=== PATIENT | male | born 1950 | race Caucasian/White ===

== ENCOUNTER 2022-08-21 16:31 | Outpatient (CLI) | payer MEDICARE, OTHER ==
--- NOTE | 2022-08-21 17:59 | XRAY Report ---
PROCEDURE: Finger(s) RT INDICATIONS: RIGHT INDEX FINGER PAIN TECHNIQUE: AP hand, 2 views of the second finger(s) acquired. COMPARISON: None FINDINGS: Bones: No fractures or dislocations. No suspicious bony lesions. Proximal and distal interphalange al joint space narrowing with marginal osteophyte. No evidence of fracture. Soft tissues: No suspicious soft tissue calcifications. IMPRESSION: Osteoporosis without fracture or foreign body Reviewed by: Kofi Engle MD on 08/21/2022 4:58 PM [place] Approved by: Kofi Engle MD on 08/21/2022 4:58 PM AKST Station ID: [id number]
== END 2022-08-21 16:32 | disposition home or self-care (01) ==
LOC: DI.WOS 16:31
PROVIDERS: ATTEND Orthopaedic Surgery
DX: M79.644 Pain in right finger(s) (principal); M81.0 Age-related osteoporosis without current pathological fracture

== ENCOUNTER 2022-11-06 13:47 | Outpatient (CLI) | payer MEDICARE, OTHER ==
[2022-11-06 20:25] LABS: BASOPHILS # (AUTO) 0.1 10^3/uL (0.0-0.1); BASOPHILS % (AUTO) 0.8 %; EOSINOPHILS # (AUTO) 0.2 10^3/uL (0.0-0.7); EOSINOPHILS % (AUTO) 1.4 %; HCT - HEMATOCRIT 41.7 % (42.0-52.0); HGB - HEMOGLOBIN 13.8 g/dL (14.0-18.0); LYMPHOCYTES % (AUTO) 69.2 %; MEAN CORPUSCULAR HEMOGLOBIN 30.7 pg (27.0-31.0); MEAN CORPUSCULAR HGB CONC 33.1 g/dL (32.0-36.0); MEAN CORPUSCULAR VOLUME 92.9 fL (80.0-94.0); MEAN PLATELET VOLUME 10.8 fL (7.4-11.4); MONOCYTES # (AUTO) 0.5 10^3/uL (0.0-1.0); NEUTROPHILS # (AUTO) 4.1 10^3/uL (1.5-6.6); NEUTROPHILS % (AUTO) 25.4 %; PLT - PLATELET COUNT 145 10^3/uL (130-450); RED BLOOD COUNT 4.49 10^6/uL (4.70-6.10); RED CELL DISTRIBUTION WIDTH 15.7 % (12.0-15.0); WHITE BLOOD COUNT 15.9 x10^3/uL (4.8-10.8)
[2022-11-06 20:32] LABS: SLIDE REVIEW? Indicated
[2022-11-06 20:35] LABS: ALBUMIN 4.2 g/dL (3.2-5.5); ALBUMIN/GLOBULIN RATIO 1.6 (1.0-2.2); BILIRUBIN,TOTAL 0.9 mg/dL (0.2-1.0); CALCIUM 9.6 mg/dL (8.5-10.3); CREATININE 0.9 mg/dL (0.6-1.2); POTASSIUM 4.6 mmol/L (3.5-5.0); TOTAL PROTEIN 6.9 g/dL (6.7-8.2)
[2022-11-06 20:51] LABS: THYROID STIMULATING HORMONE 1.7 uIU/mL (0.34-5.60)
[2022-11-06 21:04] LABS: PLATELET ESTIMATE, MANUAL NORMAL (130-450,000) (NORMAL); PLATELET MORPHOLOGY NORMAL APPEARANCE (NORMAL); RBC MORPHOLOGY (MULTIPLE) NORMAL APPEARANCE (NORMAL); WBC MORPHOLOGY (MULTIPLE) 1+ SMUDGE CELLS (NORMAL)
[2022-11-06 21:05] LABS: DIFFERENTIAL COMMENT MANUAL=AUTO DIFF
== END 2022-11-06 13:48 | disposition home or self-care (01) ==
LOC: LAB.S 13:47
PROVIDERS: ATTEND Physician Assistant
DX: E03.9 Hypothyroidism, unspecified (principal); Z79.899 Other long term (current) drug therapy
CPT/HCPCS: 36415; 80053; 84443; 85025

== ENCOUNTER 2023-09-02 11:49 | Outpatient (CLI) | payer MEDICARE, OTHER ==
[2023-09-02 14:31] LABS: BASOPHILS % (AUTO) 0.6 %; EOSINOPHILS % (AUTO) 0.6 %; HCT - HEMATOCRIT 45.8 % (42.0-52.0); HGB - HEMOGLOBIN 14.8 g/dL (14.0-18.0); LYMPHOCYTES % (AUTO) 70.5 %; MEAN CORPUSCULAR HEMOGLOBIN 30.5 pg (27.0-31.0); MEAN CORPUSCULAR HGB CONC 32.3 g/dL (32.0-36.0); MEAN CORPUSCULAR VOLUME 94.4 fL (80.0-94.0); MEAN PLATELET VOLUME 10.8 fL (7.4-11.4); MONOCYTES % (AUTO) 4.5 %; NEUTROPHILS % (AUTO) 23.6 %; PLT - PLATELET COUNT 149 10^3/uL (130-450); RED BLOOD COUNT 4.85 10^6/uL (4.70-6.10); WHITE BLOOD COUNT 25.4 x10^3/uL (4.8-10.8)
[2023-09-02 14:48] LABS: SLIDE REVIEW? Indicated
[2023-09-02 14:55] LABS: ALBUMIN 4.7 g/dL (3.2-5.5); ALBUMIN/GLOBULIN RATIO 1.8 (1.0-2.2); BILIRUBIN,TOTAL 0.9 mg/dL (0.2-1.0); CALCIUM 10.1 mg/dL (8.5-10.3); TOTAL PROTEIN 7.3 g/dL (6.4-8.9)
[2023-09-02 15:09] LABS: ABNORMAL LYMPHS % (MANUAL) 0 %
[2023-09-02 15:57] LABS: BAND NEUTROPHILS % (MANUAL) 2 %; EOSINOPHILS # (MANUAL) 0.3 10^3/uL (0-0.7); LYMPHOCYTES # (MANUAL) 17.3 10^3/uL (1.5-3.5); LYMPHOCYTES % (MANUAL) 68 %; NEUTROPHILS # (MANUAL) 6.9 10^3/uL (1.5-6.6); PLATELET ESTIMATE, MANUAL NORMAL (130-450,000) (NORMAL); PLATELET MORPHOLOGY NORMAL APPEARANCE (NORMAL); RBC MORPHOLOGY (MULTIPLE) NORMAL APPEARANCE (NORMAL)
[2023-09-02 16:53] LABS: DIFFERENTIAL COMMENT MANUAL DIFFERENTIAL
== END 2023-09-02 11:50 | disposition home or self-care (01) ==
LOC: LAB.S 11:49
PROVIDERS: ATTEND Physician Assistant Medical
DX: R10.9 Unspecified abdominal pain (principal); R31.29 Other microscopic hematuria
CPT/HCPCS: 36415; 80053; 82150; 83690; 85025; 87077; 87086

== ENCOUNTER 2023-09-03 13:46 | Emergency (ER) | payer MEDICARE, OTHER ==
[2023-09-03 14:31] LABS: BASOPHILS % (AUTO) 0.4 %; EOSINOPHILS % (AUTO) 0.7 %; HCT - HEMATOCRIT 44.1 % (42.0-52.0); HGB - HEMOGLOBIN 14.5 g/dL (14.0-18.0); LYMPHOCYTES % (AUTO) 72.5 %; MEAN CORPUSCULAR HEMOGLOBIN 31.5 pg (27.0-31.0); MEAN CORPUSCULAR HGB CONC 32.9 g/dL (32.0-36.0); MEAN CORPUSCULAR VOLUME 95.7 fL (80.0-94.0); MEAN PLATELET VOLUME 10.2 fL (7.4-11.4); MONOCYTES % (AUTO) 2.8 %; NEUTROPHILS % (AUTO) 23.4 %; PLT - PLATELET COUNT 141 10^3/uL (130-450); RED BLOOD COUNT 4.61 10^6/uL (4.70-6.10); RED CELL DISTRIBUTION WIDTH 15.1 % (12.0-15.0); WHITE BLOOD COUNT 26.7 x10^3/uL (4.8-10.8)
[2023-09-03 14:38] LABS: ABNORMAL LYMPHS % (MANUAL) 0 %; BAND NEUTROPHILS % (MANUAL) 0 %
[2023-09-03 14:48] LABS: ALBUMIN 4.6 g/dL (3.2-5.5); ALBUMIN/GLOBULIN RATIO 1.8 (1.0-2.2); BILIRUBIN,TOTAL 0.8 mg/dL (0.2-1.0); CALCIUM 9.8 mg/dL (8.5-10.3); CREATININE 1.1 mg/dL (0.6-1.3); POTASSIUM 3.8 mmol/L (3.5-4.5); TOTAL PROTEIN 7.1 g/dL (6.4-8.9)
[2023-09-03 15:16] LABS: EOSINOPHILS # (MANUAL) 0.5 10^3/uL (0-0.7); LYMPHOCYTES # (MANUAL) 17.6 10^3/uL (1.5-3.5); LYMPHOCYTES % (MANUAL) 66 %; MONOCYTES # (MANUAL) 0.8 10^3/uL (0.0-1.0); NEUTROPHILS # (MANUAL) 7.7 10^3/uL (1.5-6.6)
[2023-09-03 15:18] LABS: DIFFERENTIAL COMMENT MANUAL DIFFERENTIAL; PLATELET ESTIMATE, MANUAL NORMAL (130-450,000) (NORMAL); PLATELET MORPHOLOGY NORMAL APPEARANCE (NORMAL); RBC MORPHOLOGY (MULTIPLE) NORMAL APPEARANCE (NORMAL)
--- NOTE | 2023-09-03 15:37 | ED Physician Documentation ---
PD HPI ABD PAIN - Stated complaint Stated Complaint: ABD PX,COUGH - Chief complaint Chief Complaint: Abd Pain - History obtained from History obtained from: Patient - Additional information Additional information: 73-year-old gentleman with history of leukemia in remission, known ascending aortic aneurysm with no surveillance for the last 2 years and known diverticulosis presents with periumbilical and left lower quadrant pain for the last week. Not associated with fevers or changes in bowel movements but was quite nauseous yesterday. Went to the clinic yesterday and noted to have a white count of 25,000. No chest pain. PD PAST MEDICAL HISTORY - Past Medical History Past Medical History: Yes GI: Hiatal hernia, Diverticulitis Musculoskeletal: Chronic back pain Other Past Medical History: lymphoma, leukemia, aneurysm. - Past Surgical History Past Surgical History: Yes Ortho: Spine surgery - Present Medications Home Medications: Ambulatory Orders Medication Instructions Recorded Confirmed Atorvastatin Calcium 0 mg PO DAILY PM 09/03/23 09/03/23 Levothyroxine [Synthroid] 112 mcg PO QDAC 09/03/23 09/03/23 Tamsulosin [Flomax] 0.8 mg PO DAILY 09/03/23 09/03/23 - Allergies Allergies/Adverse Reactions: Allergies Allergy/AdvReac Type Severity Reaction Status Date / Time No Known Drug Allergies Allergy Verified 09/03/23 14:09 - Social History Does the pt smoke?: No Smoking Status: Never smoker Does the pt drink ETOH?: No Does the pt have substance abuse?: No PD ED PE NORMAL - Vitals Vital signs reviewed: Yes - General General: Alert and oriented X 3, No acute distress - Cardiac Cardiac: RRR, No murmur - Respiratory Respiratory: No respiratory distress, Clear bilaterally - Abdomen Abdomen: Other (Moderate left lower quadrant tenderness without surgical signs) - Neuro Neuro: Alert and oriented X 3, Normal speech Results - Vitals Vitals: Vital Signs - 24 hr 09/03/23 09/03/23 09/03/23 14:03 16:02 17:22 Temperature 36.2 C L Heart Rate 74 78 51 L Respiratory 14 16 18 Rate Blood Pressure 115/75 133/80 H 139/87 H O2 Saturation 97 98 95 Oxygen O2 Source Room air - Labs Labs: Laboratory Tests 09/03/23 09/03/23 14:20 14:20 WBC 26.7 H RBC 4.61 L Hgb 14.5 Hct 44.1 MCV 95.7 H MCH 31.5 H MCHC 32.9 RDW 15.1 H Plt Count 141 MPV 10.2 Neut # (Auto) Not Reportable Lymph # (Auto) Not Reportable Placer # (Auto) Not Reportable Eos # (Auto) Not Reportable Baso # (Auto) Not Reportable Absolute Nucleated RBC Not Reportable Total Counted 100 Band Neuts % (Manual) 0 Abnorm Lymph % (Manual) 0 Nucleated RBC % Not Reportable Neutrophils # (Manual) 7.7 H Lymphocytes # (Manual) 17.6 H Monocytes # (Manual) 0.8 Eosinophils # (Manual) 0.5 Basophils # (Manual) 0.0 Differential Comment MANUAL DIFFERENTIAL Platelet Estimate NORMAL (130-450,000) Platelet Morphology NORMAL APPEARANCE RBC Morph Micro Appear NORMAL APPEARANCE Sodium 136 Potassium 3.8 Chloride 101 Carbon Dioxide 30 Anion Gap 5.0 L BUN 14 Creatinine 1.1 Estimated GFR (MDRD) 66 L Glucose 94 Calcium 9.8 Total Bilirubin 0.8 AST 14 ALT 11 Alkaline Phosphatase 89 Total Protein 7.1 Albumin 4.6 Globulin 2.5 Albumin/Globulin Ratio 1.8 Lipase 15 - Rads (name of study) CT chest/abd Relevant Findings:: Final report received, EMP independent interpretation of mathew CARDOSO Medical Decision Making - ED course ED course: 73-year-old gentleman with remote history of leukemia and lymphoma in remission presents with lower abdominal pain and cough. Has a history of diverticulosis. Has a known leukocytosis persistent today and in fact a little higher at 26,000. Otherwise normal CBC. The white count had a significant lymphocytic shift so this may be more of a leukemic phenomenon, but we will perform CT scanning. He requests evaluation of his ascending aorta as well even though he is asymptomatic from that perspective given that he has not had evaluation of that in the last 2 years. Work-up in the emergency department shows that his Ascending aortic aneurysm is stable. He states it was previously 4.5 cm but he does have adenopathy throughout the chest. No findings of diverticulosis and a large prostate. The lymphocytic shift and adenopathy is concerning for recurrence of his blood-borne malignancy and this was discussed frankly with patient and and he will need to follow-up with his provider relations specialist. I do not find anything that needs immediate treatment tonight. The radiologist wondered if he might have cholecystitis but he is completely nontender in the right upper quadrant Departure - Departure Disposition: 01 Home, Self Care Clinical Impression: Abdominal pain Qualifiers: Abdominal location: generalized Qualified Code(s): R10.84 - Generalized abdominal pain Condition: Good Record reviewed to determine appropriate education?: Yes Instructions: ED Abdominal Pain Unkn Cause Male Comments: As discussed, your ascending aortic aneurysm is stable, but concerning findings tonight are especially the lymphocytic shift on your elevated white count and the findings of adenopathy in your chest. This is concerning for recurrence of your prior malignancy. Other findings included a large prostate. I will email nurse practitioner Jarrett but you will need to follow-up with your oncologist for reevaluation given the above findings. Forms: PCP List
--- NOTE | 2023-09-03 17:11 | CT Report ---
PROCEDURE: ANGIO CHEST W/WO INDICATIONS: aorta protocol, eval known ascending aneurysm CONTRAST: 100mL Omni 300 TECHNIQUE: After the administration of intravenous contrast, 2 mm axial images were acquired from the pulmonary apices to the posterior costophrenic angles during the arterial phase. In addition, 1 mm lung kernel and 5 mm soft tissue kernel reconstructions were performed. 3-dimensional coronal oblique maximum int ensity projection (MIP) reformats, 8 mm axial MIP, and 5 mm coronal and sagittal MPR reformats were t hen performed through the thorax. For radiation dose reduction, the following was used: automated exp osure control, adjustment of mA and/or kV according to patient size. COMPARISON: CT abdomen and pelvis from the same date FINDINGS: Image quality: Excellent. Large vessels: 4.5 cm ascending aortic aneurysm. Classic three-vessel arch anatomy. Great vessel orig ins are widely patent. Transverse arch and descending thoracic aorta are normal in caliber. No dissec tion. Pulmonary arteries are normal in size. No pulmonary emboli. Lungs and pleura: No consolidation. No pleural effusions. No pneumothorax. No suspicious pulmonary n odules which require follow up. Mild bibasilar bronchiectasis. Mediastinum: Heart size is normal. Severe coronary artery calcifications. No pericardial effusion. No large vessel abnormality. No mediastinal adenopathy by size criteria. There is shotty mediastinal a denopathy with numerous small mediastinal and hilar lymph nodes, most likely reactive. Chest wall and lower neck: Thyroid is unremarkable. No axillary or supraclavicular adenopathy by size . However, there is shotty prominent bilateral axillary adenopathy. Bones: No aggressive osseous abnormality. Upper Abdomen: Please refer to the separate report from the same date. IMPRESSION: 1. 4.5 cm ascending aortic aneurysm. 2. Extensive shotty bilateral axillary and mediastinal and hilar lymph nodes, most likely reactive in nature. 3. No acute pulmonary process. 4. Severe coronary artery calcifications. Comment: Attention can be given to the mediastinal and axillary adenopathy on future studies. Consid er repeat CT chest in 6 months. Reviewed by: Lele Gates MD on 09/03/2023 5:09 PM PST Approved by: Lele Gates MD on 09/03/2023 5:09 PM PST Station ID: [id number]
--- NOTE | 2023-09-03 17:17 | CT Report ---
PROCEDURE: ABDOMEN/PELVIS W INDICATIONS: ABD PAIN, IV ONLY CONTRAST: 100mL Omni 300 TECHNIQUE: After the administration of intravenous contrast, 5 mm thick sections acquired from the diaphragms to the symphysis. 5 mm thick coronal and sagittal reformats were acquired. For radiation dose reducti on, the following was used: automated exposure control, adjustment of mA and/or kV according to sumit ent size. COMPARISON: CTA chest from today FINDINGS: Image quality: Excellent. Lung bases and heart: Coronary artery calcifications. Lung bases are clear. Liver: No solid mass. Gallbladder and biliary tree: Gallbladder is distended, and there is gallbladder wall thickening and possible gallbladder wall edema. No calcified gallstones. Findings may potentially represent acute ch olecystitis. Spleen: No splenomegaly. Pancreas: No pancreatic ductal dilation. Adrenals: No adrenal nodule. Kidneys and ureters: No hydronephrosis. No renal cystic lesion which requires follow up. No solid mas s. Bowel and peritoneum: No bowel distension. No pathologic free fluid. Incidental note is made of inter position of the transverse colon anterior to the left lobe of the liver. Extensive sigmoid diverticul osis without evidence of diverticulitis. Lymph nodes: No central or retroperitoneal adenopathy. Vessels: No infrarenal aortic aneurysm. PELVIS Reproductive organs: Prostate is enlarged. There is impression on the base of the bladder by the pros ling.. Bladder: No abnormal wall thickening, accounting for underdistension. There is a probable diverticulu m off the fundus of the bladder. Pelvic lymph nodes: No pelvic adenopathy by size criteria. Bones: No aggressive osseous abnormality. Remote compression fracture of L2. Posterior lateral pete an d pedicle screw fixation bilaterally extending from L1 through L5. Posterior decompressive laminectom y centered at L4. No acute compression fractures. There is a sclerotic area in the medial right sacru m which is felt to likely represent a benign bony lesion. Other: No significant ventral or inguinal hernia. IMPRESSION: 1. Gallbladder is distended with gallbladder wall thickening and possible wall edema. Findings may po tentially represent acute cholecystitis. 2. Prostatomegaly, with impression on the base of the bladder by prostate. 3. The presence of a fundal bladder diverticulum suggests that there is likely a component of bladder outlet obstruction secondary to prostate enlargement. 4. Extensive sigmoid diverticulosis without evidence of diverticulitis. Comment: If suspect acute cholecystitis, recommend right upper quadrant ultrasound. Reviewed by: Lele Gates MD on 09/03/2023 5:15 PM PST Approved by: Lele Gates MD on 09/03/2023 5:15 PM PST Station ID: [id number]
[2023-09-03 17:32] VITALS: BP 139/87; O2SAT 95
[2023-09-03] MEDS ORDERED: iohexoL-300 100 ML VIAL IVP ONE (18:11)
== END 2023-09-03 17:50 | disposition home or self-care (01) ==
LOC: ED 13:46
DX: R10.84 Generalized abdominal pain (principal); I71.21 Aneurysm of the ascending aorta, without rupture; C95.91 Leukemia, unspecified, in remission; R59.0 Localized enlarged lymph nodes; N40.0 Benign prostatic hyperplasia without lower urinary tract symptoms
CPT/HCPCS: 36415; 71275; 74177; 80053; 83690; 85025; 99284; Q9967

== ENCOUNTER 2023-09-04 14:02 | Emergency (ER) | payer MEDICARE, OTHER ==
[2023-09-04 14:50] VITALS: BP 102/73; O2SAT 96
[2023-09-04 15:17] LABS: BASOPHILS % (AUTO) 0.4 %; EOSINOPHILS % (AUTO) 0.7 %; HCT - HEMATOCRIT 43.9 % (42.0-52.0); HGB - HEMOGLOBIN 14.2 g/dL (14.0-18.0); MEAN CORPUSCULAR HEMOGLOBIN 30.5 pg (27.0-31.0); MEAN CORPUSCULAR HGB CONC 32.3 g/dL (32.0-36.0); MEAN CORPUSCULAR VOLUME 94.2 fL (80.0-94.0); MEAN PLATELET VOLUME 10.3 fL (7.4-11.4); MONOCYTES % (AUTO) 2.1 %; NEUTROPHILS % (AUTO) 24.6 %; PLT - PLATELET COUNT 132 10^3/uL (130-450); RED BLOOD COUNT 4.66 10^6/uL (4.70-6.10); RED CELL DISTRIBUTION WIDTH 15.1 % (12.0-15.0); WHITE BLOOD COUNT 24.4 x10^3/uL (4.8-10.8)
[2023-09-04 15:18] LABS: ABNORMAL LYMPHS % (MANUAL) 0 %
--- NOTE | 2023-09-04 15:21 | Ultrasound Report ---
PROCEDURE: Abdomen Limited INDICATIONS: abd pain, abn ct TECHNIQUE: Real-time focused scanning was performed of the abdomen, with image documentation. COMPARISONS: CT 09/03/2023 FINDINGS: Liver measures 12 cm. Overall evaluation is limited due to bowel gas. No focal lesions. Gallbladder is not well seen due to bowel gas. CBD, pancreas are also not well seen. Right kidney measures 12 cm. IMPRESSION: No acute sonographic abnormality in the liver, however multiple right upper quadrant structures are n ot well seen due to bowel gas, including the gallbladder. Reviewed by: Warren Layton MD on 09/04/2023 3:20 PM PST Approved by: Warren Layton MD on 09/04/2023 3:20 PM PST Station ID: [id number]
[2023-09-04 15:30] LABS: ALBUMIN 4.4 g/dL (3.2-5.5); ALBUMIN/GLOBULIN RATIO 1.8 (1.0-2.2); BILIRUBIN,TOTAL 0.7 mg/dL (0.2-1.0); CALCIUM 9.9 mg/dL (8.5-10.3); POTASSIUM 4.2 mmol/L (3.5-4.5); TOTAL PROTEIN 6.8 g/dL (6.4-8.9)
[2023-09-04 15:46] LABS: BAND NEUTROPHILS % (MANUAL) 1 %; LYMPHOCYTES # (MANUAL) 17.8 10^3/uL (1.5-3.5); LYMPHOCYTES % (MANUAL) 73 %; MONOCYTES # (MANUAL) 0.7 10^3/uL (0.0-1.0); NEUTROPHILS # (MANUAL) 5.9 10^3/uL (1.5-6.6)
[2023-09-04 15:47] LABS: DIFFERENTIAL COMMENT MANUAL DIFFERENTIAL; PLATELET ESTIMATE, MANUAL DECREASED (<130,000) (NORMAL); PLATELET MORPHOLOGY NORMAL APPEARANCE (NORMAL); RBC MORPHOLOGY (MULTIPLE) NORMAL APPEARANCE (NORMAL)
[2023-09-04] MEDS ORDERED: oxyCODONE 5 MG TABLET PO STA (16:40)
--- NOTE | 2023-09-04 16:41 | ED Physician Documentation ---
PD HPI ABD PAIN - Stated complaint Stated Complaint: ABD PX - Chief complaint Chief Complaint: Abd Pain - History obtained from History obtained from: Patient - Additional information Additional information: 73-year-old gentleman with history of myelogenous malignancy in remission was seen by me last night for abdominal pain. He had had a white count the day prior at the urgent care of 25,000, and yesterday was 26,000. The focus of the pain was epigastrium to the left lower quadrant. His liver enzymes were normal and he had CT scanning done which was notable for stable ascending aortic aneury sm, shotty adenopathy in the chest, dilated gallbladder, prostatic megaly and diverticulosis without diverticulitis. At that time I did not feel that the pain was related to his gallbladder as he had no right upper quadrant pain. As instructed, he called [facility] today to arrange for oncology follow-up given the elevated white count with lymphocytic predominance. They reviewed the imaging but did not see the patient and advised reevaluation given the gallbladder findings although I did not feel that clinically his gallbladder was the source of pain yesterday. PD PAST MEDICAL HISTORY - Past Medical History Past Medical History: Yes GI: Hiatal hernia, Diverticulitis Musculoskeletal: Chronic back pain Other Past Medical History: leukemia and lymphoma - Past Surgical History Past Surgical History: Yes Ortho: Spine surgery - Present Medications Home Medications: Ambulatory Orders Medication Instructions Recorded Confirmed Atorvastatin Calcium 0 mg PO DAILY PM 09/03/23 09/03/23 Levothyroxine [Synthroid] 112 mcg PO QDAC 09/03/23 09/03/23 Tamsulosin [Flomax] 0.8 mg PO DAILY 09/03/23 09/03/23 oxyCODONE [Roxicodone] 5 mg PO Q4-6H PRN #20 tablet 09/04/23 - Allergies Allergies/Adverse Reactions: Allergies Allergy/AdvReac Type Severity Reaction Status Date / Time No Known Drug Allergies Allergy Verified 09/03/23 14:09 - Social History Does the pt smoke?: No Smoking Status: Never smoker Does the pt drink ETOH?: No Does the pt have substance abuse?: No PD ED PE NORMAL - Vitals Vital signs reviewed: Yes - General General: Alert and oriented X 3, No acute distress - Cardiac Cardiac: RRR, No murmur - Respiratory Respiratory: No respiratory distress, Clear bilaterally - Abdomen Abdomen: Normal bowel sounds, Soft, Other (He is completely nontender in the right upper quadrant. He is twister tender in the right lower quadrant without surgical signs.) - Back Back: No CVA TTP, No spinal TTP - Neuro Neuro: Alert and oriented X 3, Normal speech Results - Vitals Vitals: Vital Signs - 24 hr 09/04/23 09/04/23 14:28 16:17 Temperature 36.8 C Heart Rate 80 Respiratory 20 4 L Rate Blood Pressure 102/73 O2 Saturation 96 Oxygen O2 Source Room air - Labs Labs: Laboratory Tests 09/04/23 09/04/23 15:06 15:06 WBC 24.4 H RBC 4.66 L Hgb 14.2 Hct 43.9 MCV 94.2 H MCH 30.5 MCHC 32.3 RDW 15.1 H Plt Count 132 MPV 10.3 Neut # (Auto) Not Reportable Lymph # (Auto) Not Reportable Lamb # (Auto) Not Reportable Eos # (Auto) Not Reportable Baso # (Auto) Not Reportable Absolute Nucleated RBC Not Reportable Total Counted 100 Band Neuts % (Manual) 1 Abnorm Lymph % (Manual) 0 Nucleated RBC % Not Reportable Neutrophils # (Manual) 5.9 Lymphocytes # (Manual) 17.8 H Monocytes # (Manual) 0.7 Eosinophils # (Manual) 0.0 Basophils # (Manual) 0.0 Differential Comment MANUAL DIFFERENTIAL Platelet Estimate DECREASED (<130,000) Platelet Morphology NORMAL APPEARANCE RBC Morph Micro Appear NORMAL APPEARANCE Sodium 136 Potassium 4.2 Chloride 104 Carbon Dioxide 24 Anion Gap 8.0 BUN 15 Creatinine 1.0 Estimated GFR (MDRD) 73 L Glucose 92 Calcium 9.9 Total Bilirubin 0.7 AST 14 ALT 9 L Alkaline Phosphatase 83 Total Protein 6.8 Albumin 4.4 Globulin 2.4 Albumin/Globulin Ratio 1.8 Lipase 32 PD Medical Decision Making - ED course ED course: Work-up today demonstrates mildly improved white count to 24,000, normal CMP without elevation in liver enzymes or evidence of biliary obstruction. A right upper quadrant ultrasound was done which was basically nondiagnostic due to bowel gas. On examination today he remains completely nontender in the right upper quadrant and therefore I do not believe that his gallbladder is the source of his current symptoms. I offered surgical consultation to him which he declined agreeing with my evaluation. Departure - Departure Disposition: 01 Home, Self Care Clinical Impression: Abdominal pain Qualifiers: Abdominal location: left lower quadrant Qualified Code(s): R10.32 - Left lower quadrant pain Condition: Good Instructions: ED Abdominal Pain Unkn Cause Male Prescriptions: oxyCODONE [Roxicodone] 5 mg PO Q4-6H PRN #20 tablet PRN Reason: Pain Comments: I sent a prescription for oxycodone to the [facility] in [place]. Follow-up with oncology on Saturday as discussed. Again, I do not think your current pain is related to your gallbladder as the tenderness and pain is not typical for that, that said if the pain moves to the upper right part of your abdomen or worsens or you develop other new or worsening symptoms please return for reevaluation. Follow-up with oncology on Saturday as scheduled. I am prescribing a short course of narcotic pain medication for you. These are potentially dangerous and addictive medications that should be used carefully. These medications may constipate you. Take an [id number] stool softener (docusate) twice daily with plenty of water while taking these medications. If you go 24 hours without a bowel movement, take [id number] miralax, per package instructions. Do not drink or drive while taking these medications. If you received narcotic or sedating medications while in the emergency department, do not drive for 24 hours. Store this medication in a safe, secure place and out of reach of children. It is a violation of federal law to give or sell this medication to another per son or to use in a manner other than prescribed. The ED will not refill narcotic prescriptions, including prescriptions lost or stolen. To dispose of unwanted medications: 1. [facility] provides a drop box for medication in pill form only (no liquids) 8:00 am to 4:30 p.m. Saturday-Saturday in the lobby of the [facility], [address] [place] [address]. Empty pills into ziplock bag before disposal. Call [phone] for information. 2.[employer] is a free service available to all [facility] residents. Go to [email or web address] Note that many narcotic pain relievers also contain Tylenol/acetaminophen. Please ensure that your total dose of acetaminophen from all sources does not exceed 3 g (3000 mg) per day.
== END 2023-09-04 16:56 | disposition home or self-care (01) ==
LOC: ED 14:02
DX: R10.32 Left lower quadrant pain (principal)
CPT/HCPCS: 36415; 76705; 80053; 83690; 85025; 99283; 99284; A9270

== ENCOUNTER 2023-10-16 10:11 | Outpatient (CLI) | payer MEDICARE, OTHER ==
[2023-10-16 14:53] LABS: BASOPHILS % (AUTO) 0.2 %; EOSINOPHILS % (AUTO) 0.5 %; HCT - HEMATOCRIT 41.1 % (42.0-52.0); HGB - HEMOGLOBIN 12.9 g/dL (14.0-18.0); LYMPHOCYTES % (AUTO) 91.2 %; MEAN CORPUSCULAR HEMOGLOBIN 30.3 pg (27.0-31.0); MEAN CORPUSCULAR HGB CONC 31.4 g/dL (32.0-36.0); MEAN CORPUSCULAR VOLUME 96.5 fL (80.0-94.0); MONOCYTES % (AUTO) 0.8 %; NEUTROPHILS % (AUTO) 7.2 %; PLT - PLATELET COUNT 127 10^3/uL (130-450); RED BLOOD COUNT 4.26 10^6/uL (4.70-6.10); RED CELL DISTRIBUTION WIDTH 16.1 % (12.0-15.0)
[2023-10-16 15:14] LABS: WHITE BLOOD COUNT 54.9 x10^3/uL (4.8-10.8)
[2023-10-16 15:15] LABS: ABNORMAL LYMPHS % (MANUAL) 0 %
[2023-10-16 15:44] LABS: ALBUMIN 4.3 g/dL (3.2-5.5); ALBUMIN/GLOBULIN RATIO 1.6 (1.0-2.2); ALKALINE PHOSPHATASE 82 IU/L (42-121); ALT ALANINE AMINOTRANSFERASE 11 IU/L (10-60); AST ASPARTATE AMINOTRANSFERASE 13 IU/L (10-42); BILIRUBIN,TOTAL 0.7 mg/dL (0.2-1.0); BUN - BLOOD UREA NITROGEN 22 mg/dL (6-20); CALCIUM 9.6 mg/dL (8.5-10.3); CARBON DIOXIDE - CO2 29 mmol/L (21-32); CHLORIDE 103 mmol/L (101-111); CHOL/HDL RATIO 3.5 (<5.0); CHOLESTEROL 142 mg/dL; CREATININE 0.9 mg/dL (0.6-1.3); GFR - MDRD 83 (>89); GLUCOSE 86 mg/dL (74-104); HDL CHOLESTEROL 41 mg/dL; LDL CHOLESTEROL,CALCULATED 86 mg/dL; LDL/HDL RATIO 2.1 (<3.6); POTASSIUM 4.1 mmol/L (3.5-4.5); SODIUM 137 mmol/L (135-145); TRIGLYCERIDES 75 mg/dL (48-352); VLDL CHOLESTEROL 15 mg/dL
[2023-10-16 16:23] LABS: BAND NEUTROPHILS % (MANUAL) 1 %; LYMPHOCYTES % (MANUAL) 91 %; MONOCYTES # (MANUAL) 1.1 10^3/uL (0.0-1.0); NEUTROPHILS # (MANUAL) 3.8 10^3/uL (1.5-6.6)
[2023-10-16 16:24] LABS: DIFFERENTIAL COMMENT MANUAL DIFFERENTIAL; PLATELET ESTIMATE, MANUAL DECREASED (<130,000) (NORMAL); PLATELET MORPHOLOGY NORMAL APPEARANCE (NORMAL); RBC MORPHOLOGY (MULTIPLE) NORMAL APPEARANCE (NORMAL)
[2023-10-16 17:51] LABS: THYROID STIMULATING HORMONE 1.26 uIU/mL (0.34-5.60)
== END 2023-10-16 10:12 | disposition home or self-care (01) ==
LOC: LAB.S 10:11
PROVIDERS: ATTEND Nurse Practitioner Acute Care
DX: E03.9 Hypothyroidism, unspecified (principal); Z13.228 Encounter for screening for other metabolic disorders; Z13.220 Encounter for screening for lipoid disorders; Z13.29 Encounter for screening for other suspected endocrine disorder; Z13.0 Encounter for screening for diseases of the blood and blood-forming organs and certain disorders involving the immune mechanism
CPT/HCPCS: 36415; 80053; 80061; 83721; 84443; 85025

== ENCOUNTER 2023-11-11 11:10 | Outpatient (CLI) | payer MEDICARE, OTHER ==
[2023-11-11 15:27] LABS: BASOPHILS % (AUTO) 0.4 %; EOSINOPHILS % (AUTO) 0.3 %; HCT - HEMATOCRIT 40.8 % (42.0-52.0); HGB - HEMOGLOBIN 12.8 g/dL (14.0-18.0); LYMPHOCYTES % (AUTO) 88.5 %; MEAN CORPUSCULAR HGB CONC 31.4 g/dL (32.0-36.0); MEAN CORPUSCULAR VOLUME 98.8 fL (80.0-94.0); MEAN PLATELET VOLUME 11.7 fL (7.4-11.4); NEUTROPHILS % (AUTO) 9.6 %; PLT - PLATELET COUNT 140 10^3/uL (130-450); RED BLOOD COUNT 4.13 10^6/uL (4.70-6.10); RED CELL DISTRIBUTION WIDTH 17.5 % (12.0-15.0)
[2023-11-11 16:36] LABS: ALBUMIN 4.3 g/dL (3.2-5.5); ALBUMIN/GLOBULIN RATIO 1.5 (1.0-2.2); BILIRUBIN,TOTAL 0.8 mg/dL (0.2-1.0); CALCIUM 9.6 mg/dL (8.5-10.3); CREATININE 0.9 mg/dL (0.6-1.3); POTASSIUM 4.3 mmol/L (3.5-4.5); TOTAL PROTEIN 7.2 g/dL (6.4-8.9); URIC ACID 4.9 mg/dL (4.4-7.6)
[2023-11-11 16:40] LABS: WHITE BLOOD COUNT 58.3 x10^3/uL (4.8-10.8)
[2023-11-11 16:41] LABS: SLIDE REVIEW? Indicated
[2023-11-11 16:42] LABS: ABNORMAL LYMPHS % (MANUAL) 0 %; BAND NEUTROPHILS % (MANUAL) 0 %
[2023-11-11 16:46] LABS: LYMPHOCYTES # (MANUAL) 50.7 10^3/uL (1.5-3.5); LYMPHOCYTES % (MANUAL) 80 %; MONOCYTES # (MANUAL) 1.2 10^3/uL (0.0-1.0); NEUTROPHILS # (MANUAL) 6.4 10^3/uL (1.5-6.6); REACTIVE LYMPHS % (MANUAL) 7 %
[2023-11-11 16:47] LABS: DIFFERENTIAL COMMENT MANUAL DIFFERENTIAL; PLATELET ESTIMATE, MANUAL NORMAL (130-450,000) (NORMAL); PLATELET MORPHOLOGY NORMAL APPEARANCE (NORMAL); RBC MORPHOLOGY (MULTIPLE) 1+ ANISOCYTOSIS (NORMAL); WBC MORPHOLOGY (MULTIPLE) 1+ SMUDGE CELLS (NORMAL)
[2023-11-12 03:11] LABS: IMMUNOGLOBULIN A (IGA) 258 mg/dL (61-437); IMMUNOGLOBULIN G (IGG) 1086 mg/dL (603-1613); IMMUNOGLOBULIN M (IGM) 39 mg/dL (15-143)
== END 2023-11-11 11:11 | disposition home or self-care (01) ==
LOC: LAB.S 11:10
PROVIDERS: ATTEND Internal Medicine
DX: C91.12 Chronic lymphocytic leukemia of B-cell type in relapse (principal)
CPT/HCPCS: 36415; 80053; 82784; 83615; 84550; 85025

== ENCOUNTER 2023-12-27 08:00 | Outpatient (CLI) | payer MEDICARE, OTHER | END 2023-12-27 23:59 | disposition home or self-care (01) | LOC: PC 08:00 | PROVIDERS: ATTEND Nurse Practitioner Adult Health | DX: Z51.5 Encounter for palliative care (principal); R21 Rash and other nonspecific skin eruption; C91.12 Chronic lymphocytic leukemia of B-cell type in relapse; F41.9 Anxiety disorder, unspecified; G89.29 Other chronic pain; R10.32 Left lower quadrant pain; K52.1 Toxic gastroenteritis and colitis; T45.1X5A Adverse effect of antineoplastic and immunosuppressive drugs, initial encounter; F43.20 Adjustment disorder, unspecified; Z63.4 Disappearance and death of family member; R53.83 Other fatigue; R06.02 Shortness of breath; G62.9 Polyneuropathy, unspecified; R41.3 Other amnesia; Z79.899 Other long term (current) drug therapy; Z71.89 Other specified counseling | CPT/HCPCS: 99215 ==

== ENCOUNTER 2024-01-17 08:00 | Outpatient (CLI) | payer MEDICARE, OTHER | END 2024-01-17 23:59 | disposition home or self-care (01) | LOC: PC 08:00 | PROVIDERS: ATTEND Nurse Practitioner Adult Health | DX: Z51.5 Encounter for palliative care (principal); C91.12 Chronic lymphocytic leukemia of B-cell type in relapse; F41.9 Anxiety disorder, unspecified; E03.9 Hypothyroidism, unspecified; R53.83 Other fatigue; R06.02 Shortness of breath; G89.29 Other chronic pain; G62.9 Polyneuropathy, unspecified; R53.1 Weakness; M25.511 Pain in right shoulder; M25.512 Pain in left shoulder; M25.551 Pain in right hip; M25.552 Pain in left hip; M25.521 Pain in right elbow; M25.522 Pain in left elbow; M25.561 Pain in right knee; M25.562 Pain in left knee; Z79.899 Other long term (current) drug therapy; Z71.89 Other specified counseling | CPT/HCPCS: 99215 ==

== ENCOUNTER 2024-02-05 08:00 | Outpatient (CLI) | payer MEDICARE, OTHER | END 2024-02-05 08:01 | disposition home or self-care (01) | LOC: PC 08:00 | PROVIDERS: ATTEND Nurse Practitioner Adult Health | DX: Z51.5 Encounter for palliative care (principal); C91.12 Chronic lymphocytic leukemia of B-cell type in relapse; F32.A Depression, unspecified; M25.50 Pain in unspecified joint; D69.6 Thrombocytopenia, unspecified; Z79.899 Other long term (current) drug therapy; F41.9 Anxiety disorder, unspecified; G89.29 Other chronic pain; R53.83 Other fatigue; R06.02 Shortness of breath; G62.9 Polyneuropathy, unspecified; R42 Dizziness and giddiness; K30 Functional dyspepsia; R10.811 Right upper quadrant abdominal tenderness; R14.2 Eructation; Z71.89 Other specified counseling | CPT/HCPCS: 99215 ==

== ENCOUNTER 2024-02-11 08:00 | Outpatient (CLI) | payer MEDICARE, OTHER | END 2024-02-11 23:59 | disposition home or self-care (01) | LOC: PC 08:00 | PROVIDERS: ATTEND Nurse Practitioner Adult Health | DX: Z51.5 Encounter for palliative care (principal); C91.12 Chronic lymphocytic leukemia of B-cell type in relapse | CPT/HCPCS: 99426 ==

== ENCOUNTER 2024-02-13 14:46 | Outpatient (CLI) | payer MEDICARE, OTHER ==
[2024-02-13 20:33] LABS: THYROID STIMULATING HORMONE 0.04 uIU/mL (0.34-5.60)
== END 2024-02-13 14:47 | disposition home or self-care (01) ==
LOC: LAB.S 14:46
PROVIDERS: ATTEND Nurse Practitioner Adult Health
DX: E03.9 Hypothyroidism, unspecified (principal)
CPT/HCPCS: 36415; 84436; 84443

== ENCOUNTER 2024-02-14 10:56 | Outpatient (CLI) | payer MEDICARE, OTHER ==
[2024-02-14 15:08] LABS: BASOPHILS % (AUTO) 0.7 %; HGB - HEMOGLOBIN 11.8 g/dL (14.0-18.0); LYMPHOCYTES % (AUTO) 70.2 %; MEAN CORPUSCULAR HEMOGLOBIN 31.5 pg (27.0-31.0); MEAN CORPUSCULAR HGB CONC 31.9 g/dL (32.0-36.0); MEAN CORPUSCULAR VOLUME 98.7 fL (80.0-94.0); MEAN PLATELET VOLUME 11.8 fL (7.4-11.4); MONOCYTES % (AUTO) 2.5 %; NEUTROPHILS % (AUTO) 25.4 %; PLT - PLATELET COUNT 149 10^3/uL (130-450); RED BLOOD COUNT 3.75 10^6/uL (4.70-6.10); RED CELL DISTRIBUTION WIDTH 15.7 % (12.0-15.0); WHITE BLOOD COUNT 17.8 x10^3/uL (4.8-10.8)
[2024-02-14 15:17] LABS: ABNORMAL LYMPHS % (MANUAL) 0 %
[2024-02-14 15:31] LABS: ALBUMIN 4.1 g/dL (3.2-5.5); ALBUMIN/GLOBULIN RATIO 1.6 (1.0-2.2); BILIRUBIN,TOTAL 0.7 mg/dL (0.2-1.0); POTASSIUM 4.5 mmol/L (3.5-4.5); TOTAL PROTEIN 6.6 g/dL (6.4-8.9)
[2024-02-14 16:35] LABS: BAND NEUTROPHILS % (MANUAL) 1 %; DIFFERENTIAL COMMENT MANUAL DIFFERENTIAL; LYMPHOCYTES % (MANUAL) 73 %; MONOCYTES # (MANUAL) 0.4 10^3/uL (0.0-1.0); NEUTROPHILS # (MANUAL) 4.5 10^3/uL (1.5-6.6); PLATELET ESTIMATE, MANUAL NORMAL (130-450,000) (NORMAL); PLATELET MORPHOLOGY NORMAL APPEARANCE (NORMAL); RBC MORPHOLOGY (MULTIPLE) NORMAL APPEARANCE (NORMAL)
== END 2024-02-14 10:57 | disposition home or self-care (01) ==
LOC: LAB.S 10:56
PROVIDERS: ATTEND Internal Medicine
DX: C83.08 Small cell B-cell lymphoma, lymph nodes of multiple sites (principal)
CPT/HCPCS: 36415; 80053; 83615; 85025

== ENCOUNTER 2024-04-30 08:00 | Outpatient (CLI) | payer MEDICARE, OTHER | END 2024-04-30 23:59 | disposition home or self-care (01) | LOC: PC 08:00 | PROVIDERS: ATTEND Nurse Practitioner Adult Health | DX: Z51.5 Encounter for palliative care (principal); M25.50 Pain in unspecified joint; R53.83 Other fatigue; F41.9 Anxiety disorder, unspecified; C91.12 Chronic lymphocytic leukemia of B-cell type in relapse; R23.8 Other skin changes; F32.A Depression, unspecified; G89.29 Other chronic pain; Z71.89 Other specified counseling | CPT/HCPCS: 99215 ==

== ENCOUNTER 2024-05-04 10:11 | Outpatient (CLI) | payer MEDICARE, OTHER ==
[2024-05-04 14:54] LABS: BASOPHILS # (AUTO) 0.1 10^3/uL (0.0-0.1); BASOPHILS % (AUTO) 0.7 %; EOSINOPHILS # (AUTO) 0.2 10^3/uL (0.0-0.7); EOSINOPHILS % (AUTO) 1.3 %; HCT - HEMATOCRIT 40.7 % (42.0-52.0); HGB - HEMOGLOBIN 13.2 g/dL (14.0-18.0); LYMPHOCYTES # (AUTO) 7.3 10^3/uL (1.5-3.5); LYMPHOCYTES % (AUTO) 57.1 %; MEAN CORPUSCULAR HEMOGLOBIN 31.4 pg (27.0-31.0); MEAN CORPUSCULAR HGB CONC 32.4 g/dL (32.0-36.0); MEAN CORPUSCULAR VOLUME 96.9 fL (80.0-94.0); MEAN PLATELET VOLUME 11.3 fL (7.4-11.4); MONOCYTES # (AUTO) 0.4 10^3/uL (0.0-1.0); MONOCYTES % (AUTO) 3.3 %; NEUTROPHILS # (AUTO) 4.8 10^3/uL (1.5-6.6); NEUTROPHILS % (AUTO) 37.4 %; PLT - PLATELET COUNT 124 10^3/uL (130-450); RED CELL DISTRIBUTION WIDTH 15.6 % (12.0-15.0); WHITE BLOOD COUNT 12.8 x10^3/uL (4.8-10.8)
[2024-05-04 15:40] LABS: ALBUMIN 4.4 g/dL (3.2-5.5); ALBUMIN/GLOBULIN RATIO 1.8 (1.0-2.2); BILIRUBIN,TOTAL 0.8 mg/dL (0.2-1.0); CALCIUM 9.8 mg/dL (8.5-10.3); CREATININE 0.9 mg/dL (0.6-1.3); POTASSIUM 4.3 mmol/L (3.5-4.5); TOTAL PROTEIN 6.9 g/dL (6.4-8.9)
[2024-05-04 16:30] LABS: SLIDE REVIEW? Indicated
[2024-05-04 16:34] LABS: DIFFERENTIAL COMMENT MANUAL=AUTO DIFF; PLATELET ESTIMATE, MANUAL DECREASED (<130,000) (NORMAL); PLATELET MORPHOLOGY NORMAL APPEARANCE (NORMAL); RBC MORPHOLOGY (MULTIPLE) NORMAL APPEARANCE (NORMAL)
[2024-05-05 05:13] LABS: IMMUNOGLOBULIN A (IGA) 208 mg/dL (61-437); IMMUNOGLOBULIN G (IGG) 1012 mg/dL (603-1613); IMMUNOGLOBULIN M (IGM) 29 mg/dL (15-143)
== END 2024-05-04 10:12 | disposition home or self-care (01) ==
LOC: LAB.S 10:11
PROVIDERS: ATTEND Internal Medicine
DX: C83.08 Small cell B-cell lymphoma, lymph nodes of multiple sites (principal)
CPT/HCPCS: 36415; 80053; 82784; 83615; 85025